=== PATIENT | male | born 1965 | race Hispanic/Latino ===

== ENCOUNTER 2017-08-06 04:15 | Inpatient (IN) | payer MEDICARE, OTHER ==
--- NOTE | 2017-08-06 04:27 | ED PDOC ---
Psych Transfer Clearance - Clearance Statement Clearance Statement: Dr. Matute reviewed vital signs, lab results and transfer papers. Patient clinically stable for psychiatric admission.
[2017-08-06 04:28] VITALS: O2SAT 96
[2017-08-06] MEDS ORDERED: Alum-Mag Hydrox-Simethicone Susp (30 mL) PO PRN (04:31)
[2017-08-06] MEDS ORDERED: Magnesium Hydroxide Susp 30 ml UD PO PRN (04:31)
[2017-08-06] MEDS ORDERED: DiphenhydrAMINE 50 mg/ml Inj IM PRN (04:31)
--- NOTE | 2017-08-06 05:11 | PCM.BM ---
<Jannette Valadez - Last Filed: 08/06/17 05:08> Treatment Plan Problems - Problems identified on initial assessmt Suicidal Ideation Date Initiated: 08/06/17 Time Initiated: 05:09 Assessment reference: NA Status: Active Feelings of Worthlessness Date Initiated: 08/06/17 Time Initiated: 05:10 Assessment reference: NA Status: Active Treatment assets and liabiliti Patient Assests: cooperative, ADL independent, good support system, negotiates basic needs Patient Liabilities: medical problems - Milieu Protocol Maintain good personal hygiene: daily Encourage regular showers, daily Assist patient to perform ADL's, every shift Remind patient to perform daily oral care Conduct patient checks and document Observation sheet: Q15 minutes Maintain personal safety: every shift Educate patient to report safety concerns to staff, every shift Monitor environment for contraband/sharps Medication safety: Monitor for expected outcome, potential side effects: every shift, Assess barriers to learning: every shift, Assess readiness for medication education: every shift <Israel Hymna - Last Filed: 08/08/17 09:27> - Diagnosis (1) Depression Status: Acute Interventions: psychotherapy , pharmacotherapy 08/08/17 09:26
[2017-08-06 05:14] VITALS: RESP 18
--- NOTE | 2017-08-06 12:19 | PCM.PSYCH ---
Initial Psychiatric Evaluation - Initial Psychiatric Evaluation Type of Admission: Voluntary Legal Status: Capacity Chief Complaint (in patient's own words): I was feeling depressed Patient's Reaction to Hospitalization: pt requested help History of Present Illness and Precipitating Events: pt with previous diagnosis of schizoaffective disorder bipolar type, currently residing in a intermediate presented to ER at [facility] (formerly [facility]) reporting feeling depressed, having suicidal ideations with plan , pt has previous attemp by cutting his wrist at age 18 requesting stitches pt reported feeling down hopeless , helpless, poor sleep and appetite, denied any current active suicidal ideations on the unit denied command hallucinations Current Medications: Active Medications Generic Name Dose Route Start Last Admin Trade Name Freq PRN Reason Stop Dose Admin Al Hydrox/Mg Hydrox/Simethicone 30 ml 08/06/17 04:31 Maalox Plus 30 Ml PO Q4 PRN Dyspepsia Diphenhydramine HCl 50 mg 08/06/17 04:31 Benadryl IM Q6 PRN Extrapyramidal S/S Unable PO Diphenhydramine HCl 50 mg 08/06/17 04:31 Benadryl PO HS PRN Extrapyramidal Symptoms Gabapentin 100 mg 08/06/17 13:00 Neurontin PO TID QUOC Haloperidol 5 mg 08/06/17 04:31 Haldol PO Q4 PRN Agitation Haloperidol Lactate 5 mg 08/06/17 04:31 Haldol IM Q4 PRN Agitation, Unable to Take PO Lorazepam 2 mg 08/06/17 04:31 Ativan IM Q4 PRN Anxiety/Agitation,Unable PO Lorazepam 1 mg 08/06/17 04:31 Ativan PO Q4 PRN Anxiety/Agitation Magnesium Hydroxide 30 ml 08/06/17 04:31 Milk Of Magnesia PO HS PRN Constipation Risperidone 2 mg 08/06/17 22:00 Risperdal M-Tab PO HS QUOC Sertraline HCl 100 mg 08/06/17 12:15 Zoloft PO DAILY QUOC Past Psychiatric History - Past Psychiatric History Explanation of prior treatment: reported multiple inpatient hospitalizations since age 18 with partial compliance with treatment History of ETOH/Drug Use: denied Pertinent Medical Hx (Current Medical&Sleep Prob, Allergies): Allergies Allergy/AdvReac Type Severity Reaction Status Date / Time acetaminophen [From Percocet] Allergy RASH Verified 08/06/17 05:22 FISH Allergy RASH Verified 08/06/17 05:22 Latex, Natural Rubber Allergy RASH Verified 08/06/17 05:22 oxycodone [From Percocet] Allergy RASH Verified 08/06/17 05:22 Penicillins Allergy SWELLING Verified 08/06/17 05:22 shellfish derived Allergy RASH Verified 08/06/17 05:22 strawberry Allergy RASH Verified 08/06/17 05:22 Mental Status Examination - Personal Presentation Personal Presentation: Looks older than stated age - Affect Affect: Constricted, Depressed - Motor Activity Motor Activity: Calm - Reliability in Providing Information Reliability in Providing Information: Poor, due to alteration in thoughts, Poor , due to altered mood - Speech Speech: Tangential - Mood Mood: Depressed, Anxious - Formal Thought Process Formal Thought Process: Circumstantial - Hallucinations/Delusions Additional comments: denied perceptual disturbances, non elicited - Obsessions/Compulsions Obsessions: No Compulsions: No - Cognitive Functions Orientation: Person, Place, Situation Sensorium: Alert Attention/Concentration: Attentive Judgement: Imparied, as evidence by: Poor judgement, Imparied, as evidence by: Lack of insight into illness - Risk Risk: Diminished functioning - Strength & Assets Inventory Strength & Assets Inventory: Life experience - Limitations Additional comments: partial compliance DSM 5 DX - DSM 5 DSM 5 Diagnosis: schizoaffective disorder bipolar - Recommended/Plan of Treatment Treatment Recommendations and Plan of Treatment: zoloft 100mg daily risperidone 2mgqhs neurontin 100mg tid group and supportive therapy Discharge Plan and Discharge Criteria: pt mental status stable
--- NOTE | 2017-08-06 14:22 | CP.PCM.CON ---
History of Present Illness - History of Present Illness History of Present Illness: Reason for consult: Hospital protocol HPI: 51 M PMH suicide attempt, schizoaffective disorder, admitted for SI. Pt reports sharp and stabbing chest pain today, EKG and troponin were negative. He states it is severe however he appears extremely comfortable. HD stable, NAD. ROS: Per HPI, all other systems reviewed and neg PMH: denies PSH: denies FH: denies SH: denies tobacco, ETOH, IVDU NKDA Vitals Reviewed GEN: WDWN, ALERT, COOPERATIVE HEENT: NCAT, PERRL, EOMI HEART: RRR, +S1S2, NO MRG LUNG: CTAB, NO WRR ABD: SOFT, NT, ND, NO HSM, NO MASSES EXT: NORMAL PEDAL PULSES, GOOD CAPILLARY REFILL NEURO: AAOX3, STRENGTH EQUAL BILATERAL UPPER AND LOWER EXTREMITIES SKIN: WARM, DRY PSYCH: NORMAL MOOD, NORMAL AFFECT LABS Most Recent Lab Values Troponin I < 0.0120 ng/mL (0.00-0.120) 08/06/17 11:30 ASSESSMENT AND PLAN 51 M PMH suicide attempt, schizoaffective disorder, admitted for SI. Pt reports sharp and stabbing chest pain today, EKG and troponin were negative. He states it is severe however he appears extremely comfortable. HD stable, NAD. Chest pain no ACS Past Patient History - CARDIAC Hx Cardiac Disorders: No Hx Atrial Fibrillation: Yes (history) Hx Cardia Arrhythmia: Yes (history) - PULMONARY Hx Respiratory Disorders: Yes Hx Asthma: Yes - NEUROLOGICAL Hx Neurological Disorder: Yes Hx Seizures: Yes (history) - HEENT Hx HEENT Problems: Yes - RENAL Hx Chronic Kidney Disease: No - ENDOCRINE/METABOLIC Hx Endocrine Disorders: No - HEMATOLOGICAL/ONCOLOGICAL Hx Blood Disorders: No - INTEGUMENTARY Hx Dermatological Problems: No - MUSCULOSKELETAL/RHEUMATOLOGICAL Hx Musculoskeletal Disorders: Yes Hx Arthritis: Yes - GASTROINTESTINAL Hx Gastrointestinal Disorders: Yes Hx Gastroesophageal Reflux: Yes - GENITOURINARY/GYNECOLOGICAL Hx Genitourinary Disorders: No - PSYCHIATRIC Hx Anxiety: Yes Hx Bipolar Disorder: Yes Hx Depression: Yes Hx Emotional Abuse: No Hx Physical Abuse: No Hx Schizophrenia: Yes Hx Sexual Abuse: No Hx Substance Use: No - SURGICAL HISTORY Hx Surgeries: Yes Hx Appendectomy: Yes Other/Comment: R Knee total replacement - ANESTHESIA Hx Anesthesia: Yes Hx Anesthesia Reactions: No Meds Allergies/Adverse Reactions: Allergies Allergy/AdvReac Type Severity Reaction Status Date / Time acetaminophen [From Percocet] Allergy RASH Verified 08/06/17 05:22 FISH Allergy RASH Verified 08/06/17 05:22 Latex, Natural Rubber Allergy RASH Verified 08/06/17 05:22 oxycodone [From Percocet] Allergy RASH Verified 08/06/17 05:22 Penicillins Allergy SWELLING Verified 08/06/17 05:22 shellfish derived Allergy RASH Verified 08/06/17 05:22 strawberry Allergy RASH Verified 08/06/17 05:22 - Medications Medications: Current Medications Al Hydrox/Mg Hydrox/Simethicone (Maalox Plus 30 Ml) 30 ml PO Q4 PRN PRN Reason: Dyspepsia Last Admin: 08/06/17 14:14 Dose: 30 ml Diphenhydramine HCl (Benadryl) 50 mg IM Q6 PRN PRN Reason: Extrapyramidal S/S Unable PO Diphenhydramine HCl (Benadryl) 50 mg PO HS PRN PRN Reason: Extrapyramidal Symptoms Gabapentin (Neurontin) 100 mg PO TID [facility] Last Admin: 08/06/17 12:48 Dose: 100 mg Haloperidol (Haldol) 5 mg PO Q4 PRN PRN Reason: Agitation Haloperidol Lactate (Haldol) 5 mg IM Q4 PRN PRN Reason: Agitation, Unable to Take PO Lorazepam (Ativan) 2 mg IM Q4 PRN PRN Reason: Anxiety/Agitation,Unable PO Lorazepam (Ativan) 1 mg PO Q4 PRN PRN Reason: Anxiety/Agitation Magnesium Hydroxide (Milk Of Magnesia) 30 ml PO HS PRN PRN Reason: Constipation Risperidone (Risperdal M-Tab) 2 mg PO HS [facility] Sertraline HCl (Zoloft) 100 mg PO DAILY [facility] Last Admin: 08/06/17 12:48 Dose: 100 mg Results - Vital Signs Recent Vital Signs: Last Vital Signs Temp 97.7 F 08/06/17 09:00 Pulse 80 08/06/17 09:00 Resp 18 08/06/17 09:00 BP 118/81 08/06/17 09:00 Pulse Ox 96 08/06/17 04:24 - Labs Labs: Laboratory Results - last 24 hr 08/06/17 11:30 Troponin I < 0.0120
[2017-08-06] MEDS: Pantoprazole 40 mg EC Tab PO SCH (21:28)
[2017-08-06] MEDS: Risperidone M TAB 2 MG PO SCH (21:28)
[2017-08-07 06:55] LABS: BASO % 0.6 % (0.0-2.0); EOS # 0.2 K/uL (0.0-0.7); LYMPH # 1.4 K/uL (1.0-4.3); LYMPH % 17.4 % (20.0-40.0); MEAN CELL VOLUME 83.4 fl (80.0-94.0); MEAN CORPUSCULAR HEMOGLOBIN 28.1 pg (27.0-31.0); MEAN CORPUSCULAR HGB CONC 33.6 g/dL (33.0-37.0); MONO # 0.7 K/uL (0.0-0.8); MONO % 9.1 % (0.0-10.0); NEUT # 5.8 K/uL (1.8-7.0); NEUT % 70.9 % (50.0-75.0); NRBC % 0.1 % (0.0-0.0); RBC 4.98 Mil/uL (4.40-5.90); RED CELL DISTRIBUTION WIDTH 14.8 % (11.5-14.5); WHITE BLOOD COUNT 8.2 K/uL (4.8-10.8)
[2017-08-07] MEDS ORDERED: Sucralfate 1 gm/10 ml Oral Susp UD PO SCH (09:00)
[2017-08-07] MEDS: Pantoprazole 40 mg EC Tab PO SCH (09:19)
[2017-08-07] MEDS ORDERED: Albuterol HFA 90 mcg/actuation (8 g) INH PRN (11:13)
--- NOTE | 2017-08-07 15:24 | PCM.PYCHPN ---
Psychiatric Progress Note - Psychiatric Progress Note Patient seen today, length of contact: pt evaluated discussed with team chart reviewed Patient Chief Complaint: I am feeling better now Problems Identified/Issues Discussed: pt evaluated, calm cooperative, pt reported feeling less depressed, and less anxious, denied any current suicidal or homicidal ideations denied perceptual disturbances, no reported side effects of medications Medical Problems: reported multiple inpatient hospitalizations since age 18 with partial compliance with treatment DSM 5 Symptoms Update: schizoaffective disorder Medication Change: No Medical Record Reviewed: Yes Mental Status Examination - Cognitive Function Orientation: Person, Place, Situation Attention: Poor Concentration: Poor Association: WNL Fund of Knowledge: Poor Decription of patient's judgement and insights: poor insight and judgment - Mood Mood: Depressed, Anxious - Affect Affect: Constricted, Depressed - Speech Speech: Soft - Formal Thought Process Formal Thought Process: Circumstantial Psychotic Thoughts and Behaviors: pt denied any current perceptual disturbances non elicited - Suicidal Ideation Suicidal Ideation: No - Homicidal Ideation Homicidal Ideation: No Goal/Treatment Plan - Goal/Treatment Plan Need for Continued Stay: Discharge may exacerbated symptoms Progress Toward Problem(s) and Goals/Treatment Plan: zoloft 100mg daily risperidone 2mgqhs neurontin 100mg tid start topamax 100mg bid for seizure disorder group and supportive therapy
[2017-08-07] MEDS: Calcium-Vit D 500 mg-200 Units Tab UD PO SCH (16:09)
[2017-08-07] MEDS: Risperidone M TAB 2 MG PO SCH (21:06)
[2017-08-08] MEDS: Calcium-Vit D 500 mg-200 Units Tab UD PO SCH (08:59)
[2017-08-08] MEDS: Pantoprazole 40 mg EC Tab PO SCH (08:59)
[2017-08-08] MEDS ORDERED: Cholecalciferol 1,000 INTLU TAB PO SCH (09:00)
[2017-08-08 09:20] VITALS: BP 109/80; PULSE 67; TEMP 97.2
--- NOTE | 2017-08-08 10:08 | PCM.PYCHDC ---
Mental Status Examination - Mental Status Examination Orientation: Person, Place Memory: Intact Mood: Neutral Affect: Constricted Speech: Soft Attention: WNL Concentration: WNL Association: WNL Fund of Knowledge: Poor Formal Thought Process: Circumstantial Description of patient's judgement and insight: poor insight and judgment Psychotic Thoughts and Behaviors: pt denied any current perceptual disturbances non elicited Suicidal Ideation: No Current Homicidal Ideation?: No Discharge Summary - Discharge Note Reason for Hospitalization: pt requested help pt with previous diagnosis of schizoaffective disorder bipolar type, currently residing in a longterm presented to ER at [facility] reporting feeling depressed, having suicidal ideations with plan , pt has previous attemp by cutting his wrist at age 18 requesting stitches pt reported feeling down hopeless , helpless, poor sleep and appetite, denied any current active suicidal ideations on the unit denied command hallucinations Laboratory Data: Abnormal Lab Results 08/07/17 06:40 Hemoglobin A1c 5.0 Consultations:: List each consultation separately and include: 1. Reason for request. 2. Findings. 3. Follow-up Summary of Hospital Course include:: 1. Description of specific treatment plan utilized for patients during their course of treatmen. 2. Summarize the time- course for resolution of acute symptoms and/or regressed behaviors. 3. Describe issues identified and worked on during hospitalization. 4. Describe medication utilized. 5. Describe medical problems identified and treated. 6. Reassessment of suicide risk Summary of Hospital Course: pt was started on risperidone, zoloft and neurontin, encouraged to attend groups Supportive and group therapy provided on Discharge patient mental status was stable, pt denied any current sucidal or homicidal ideations denied perceptual disturbances, at current mental status not danger to self or others - Diagnosis (1) Depression Current Visit: Yes Status: Acute - Final Diagnosis (DSM 5) Condition upon Discharge: STABLE DSM 5: schizoaffective disorder depressed Disposition: HOME/ ROUTINE Follow-up Treatment Plan: zoloft 100mg daily risperidone 2mgqhs neurontin 100mg tid start topamax 100mg bid for seizure disorder group and supportive therapy Prescriptions/Medication Reconciliation: Gabapentin [Neurontin] 100 mg PO TID 30 Days #90 cap Sertraline [Zoloft] 100 mg PO DAILY 30 Days #30 tab Topiramate [Topamax] 100 mg PO BID 30 Days #60 tab - Antipsychotic Medications Pt discharged on 2 or more routine antipsychotic medications: No
[2017-08-08 14:58] LABS: T4 6.93 ug/dl (5.5-11.0)
== END 2017-08-08 14:57 | disposition home or self-care (01) | DRG 885 ==
LOC: H.ER 04:15 → H.ERHOLD 04:26 → H.PSYCH 04:40
PROVIDERS: ADMIT Psychiatry & Neurology Psychiatry; ATTEND Psychiatry & Neurology Psychiatry
PROC: GZHZZZZ Group Psychotherapy (ICD-10-PCS; principal; 2017-08-06)
PROC: GZ56ZZZ Individual Psychotherapy, Supportive (ICD-10-PCS; 2017-08-06)
DX: F25.1 Schizoaffective disorder, depressive type (principal); G40.909 Epilepsy, unspecified, not intractable, without status epilepticus; R45.851 Suicidal ideations; R07.9 Chest pain, unspecified; Z88.6 Allergy status to analgesic agent; Z91.040 Latex allergy status; Z88.5 Allergy status to narcotic agent; Z91.013 Allergy to seafood